=== PATIENT | female | born 1985 | race Caucasian/White ===

== ENCOUNTER 2020-05-19 12:53 | Emergency (ER) | payer BC, SELFPAY ==
[2020-05-19 13:32] VITALS: BP 133/89; PULSE 92; RESP 20; TEMP 36.4; O2SAT 100
--- NOTE | 2020-05-19 13:38 | ED.GENADULT ---
HPI - General Adult General Chief complaint: Urogenital-Female Stated complaint: UTI Time Seen by Provider: 05/19/20 12:56 Source: patient Mode of arrival: ambulatory Limitations: no limitations History of Present Illness HPI narrative: 35 y/o female. PMH includes: None reported. Presents to [facility] today with acute complaints of urinary frequency, urgency, and dysuria for the past 48 hours. She denies fever. No abdominal pain, flank pain, hematuria. No vaginal discharge or pelvic pain. She is without additional acute complaints upon exam. Related Data Allergies Allergy/AdvReac Type Severity Reaction Status Date / Time morphine Allergy Unknown Verified 06/11/16 11:11 Review of Systems Review of Systems: Narrative: CONSTITUTIONAL: Denies fever, chills, sweats. EYES: Denies visual changes, redness, discharge. ENT: Denies rhinorrhea, congestion, sore throat, otalgia. CARDIOVASCULAR: Denies chest pain, palpitations, edema. RESPIRATORY: Denies dyspnea, wheezing, cough GASTROINTESTINAL: Denies abdominal pain, nausea, vomiting, diarrhea. GENITOURINARY: Positive urinary dysuria and frequency. No hematuria, abnormal discharge SKIN: Denies rash or itching. MUSCULOSKELETAL: Denies acute back pain, joint pain, or myalgia. NEUROLOGIC: Denies numbness, or focal weakness. PSYCHIATRIC: Denies anxiety or depression. All systems reviewed & are unremarkable except as noted in HPI and below PMFSH Family History Family History Father Hypertension Family history of heart disease in male family member before age 55 Family history of elevated blood lipids Acute myocardial infarction Sibling Asthma Mother Family history of pancreatic disease Other Diabetes mellitus Family history of allergic disorder Family history of cardiovascular disease Family history of malignant neoplasm Social History Social History Smoking status: Never smoker Alcohol intake: current Gender identity (if verbalized by the patient): Female Comments At time of signature, I agree with nursing past medical, surgical, social and family history. There is no relevant family history pertinent to the presenting complaint. Exam Narrative: Exam Narrative: GENERAL: This is a well-nourished, well-developed patient, in no apparent distress. HEAD: normocephalic, atraumatic. EYES: PERRL. Sclera clear/white. Vision is grossly intact. EARS: External ears normal, auditory canals clear and without drainage, TMs normal without perforation. Hearing grossly intact. NOSE: External nose normal with no obvious nasal discharge, nares without redness, no rhinorrhea. THROAT: Mucous membranes moist, posterior pharynx clear. NECK: Neck supple, non-tender without lymphadenopathy, masses or thyromegaly. CARDIOVASCULAR: Regular rate and rhythm without murmurs, gallops, or rubs. RESPIRATORY: Clear to auscultation. Breath sounds equal bilaterally. No wheezes, rales, or rhonchi. GASTROINTESTINAL: Abdomen soft, non-tender, nondistended. Bowel sounds are active. No hepato-splenomegaly, or palpable masses. No guarding. No CVA tenderness. SKIN: warm, intact with no suspicious lesions or rash, good texture and turgor. NEURO: awake, alert, and oriented to person, place and time. There were no obvious focal neurologic abnormalities. Steady gait Course Course Emergency Course: -35 y/o female. PMH includes: None reported. Presents to [facility] today with acute complaints of urinary frequency, urgency, and dysuria for the past 48 hours. She denies fever. No abdominal pain, flank pain, hematuria. No vaginal discharge or pelvic pain. -Afebrile, non-tachycardiac. -Unremarkable abdominal exam. No CVA tenderness. -Will proceed with Urine Dipstick. Vital Signs Vital signs: Vital Signs Temperature 36.4 C L 05/19/20 13:32 Pulse Rat
== END 2020-05-19 13:44 | disposition home or self-care (01) ==
PROVIDERS: Emergency Provider Nurse Practitioner Adult Health; PCP Family Medicine
DX: N39.0 Urinary tract infection, site not specified (principal)
CPT/HCPCS: 81003; 87077; 87086; 87088; 87186; 99213; G0463

== ENCOUNTER 2021-05-25 12:45 | Emergency (ER) | payer BC, SELFPAY ==
[2021-05-25 12:54] VITALS: BP 132/78; PULSE 84; RESP 16; TEMP 36; O2SAT 100
--- NOTE | 2021-05-25 13:14 | ED.GENADULT ---
HPI - General Adult General Chief complaint: Urogenital-Female Stated complaint: Possible UTI Source: patient Mode of arrival: ambulatory Limitations: no limitations History of Present Illness HPI narrative: Patient is a 36-year-old female who presents to the [facility] via POV for evaluation of a urinary problem that began 2 days ago. Additionally, she reports urinary frequency, urinary urgency, and dysuria. Denies taking OTC meds for. Nothing improves symptoms. Urinating worsens symptoms. History of UTI. She states today symptoms are similar to previous UTIs. Last UTI was approximately 1 year ago. Related Data Allergies Allergy/AdvReac Type Severity Reaction Status Date / Time morphine Allergy Mild Itching Verified 05/25/21 13:17 Review of Systems Review of Systems: Denies history of pyelonephritis and renal calculi. Pertinent negatives: fever, chills, sweats, change in appetite, poor p.o. intake, malaise, recent weight loss, myalgias, lymphadenopathy, headache, dizziness, STD exposure, painful intercourse, abdominal pain, constipation, nausea, vomiting, diarrhea, abdominal cramping, hematuria, back pain, urinary incontinence, vaginal bleeding/discharge, penile drainage, testicular pain, shortness of breath, chest pain, and heart palpitations/murmurs. [facility] Past Medical History Medical History (Updated 05/25/21 @ 13:17 by Iglesia Flores [facility], ) Cholecystitis Gastritis Herpes simplex UTI (urinary tract infection) Surgical History Surgical History (Updated 10/12/20 @ 21:22 by Kinsey Barrera MD) Hx laparoscopic cholecystectomy Tubal ligation status Family History Family History Father Hypertension Family history of heart disease in male family member before age 55 Family history of elevated blood lipids Acute myocardial infarction Sibling Asthma Mother Family history of pancreatic disease Other Diabetes mellitus Family history of allergic disorder Family history of cardiovascular disease Family history of malignant neoplasm Social History Social History (Updated 10/08/20 @ 14:25 by Diane Stewart) Social History: Smoking status: Never smoker Second hand tobacco smoke exposure: No Alcohol intake: never Substance use: never Substance use type: does not use Gender identity (if verbalized by the patient): Female Sexual Orientation (if Verbalized by the Patient): Straight or Heterosexual Comments Reviewed Exam Narrative: GENERAL: Well-appearing, well-nourished, and in no acute distress. HEAD: Normocephalic, atraumatic. NECK: Supple. No lymphadenopathy or nuchal rigidity. CHEST: Lung sounds are clear to auscultation in bilateral lung martinez. No respiratory distress. HEART: Regular rate and rhythm. No murmur, gallop, or rub heard. ABDOMEN: Soft, non-tender, non-distended, normal active bowel sounds in all quadrants. No guarding. No rebound tenderness. No pulsatile or palpable abdominal mass(es). No CVATGU: Bladder non-distended, non-tender EXTREMITIES: Normal range of motion. No edema. SKIN: Warm, dry, no rash. No skin color changes. Excellent turgor. NEURO: No focal deficits. Alert and oriented x3. SPECIAL OBSERVATIONS: Smiling. Laughing. No evidence of discomfort. C/O of of proportion to exam. Eating XXX. Running around. Tolerates food/fluids. Course Course Level of Care: Express Care Visit Vital Signs Vital signs: Vital Signs Temperature 96.8 F L 05/25/21 12:54 Pulse Rate 84 05/25/21 12:54 Respiratory Rate 16 05/25/21 12:54 Blood Pressure 132/78 05/25/21 12:54 Pulse Oximetry 100 05/25/21 12:54 Temperature 96.8 F L 05/25/21 12:54 Pulse Rate 84 05/25/21 12:54 Respiratory Rate 16 05/25/21 12:54 Blood Pressure 132/78 05/25/21 12:54 Pulse Oximetry 100 05/25/21 12:54 Reviewed Medical Decision Making Differential Diagnosis Differential Diagnos
== END 2021-05-25 13:24 | disposition home or self-care (01) ==
PROVIDERS: Emergency Provider Nurse Practitioner Family; PCP Family Medicine
DX: N30.90 Cystitis, unspecified without hematuria (principal)
CPT/HCPCS: 81003; 87077; 87086; 87186; 99213; G0463

== ENCOUNTER 2021-11-26 09:51 | Outpatient (CLI) | payer BC, SELFPAY ==
[2021-11-26 10:02] LABS: Basophils Absolute Auto 0.1 K/mm3 (0.0-0.1); Basophils Percent Auto 0.7 % (0.2-1.2); Eosinophils Absolute Auto 0.2 K/mm3 (0-0.3); Eosinophils Percent Auto 2.7 % (0-4.4); Hematocrit 39.7 % (37.0-47.0); Hemoglobin 12.1 g/dL (12.0-15.0); Immature Granulocyte Absolute 0.01 K/mm3 (0.00-0.031); Immature Granulocyte Percent A 0.1 % (0-0.5); Lymphocytes Absolute Auto 2.34 K/mm3 (0.9-3.2); Lymphocytes Percent Auto 34.6 % (18.3-44.2); Mean Corpuscular HGB Conc 30.5 g/dl (32-36); Mean Corpuscular Hemoglobin 24.3 pg (26-34); Mean Corpuscular Volume 79.7 fl (80-100); Mean Platelet Volume 9.8 fl (7.4-10.4); Monocytes Absolute Auto 0.3 K/mm3 (0.1-0.6); Monocytes Percent Auto 4.9 % (2.6-8.5); Neutrophils Absolute Auto 3.9 K/mm3 (1.3-6.7); Platelet Count Result 278 k/mm3 (150-375); Red Blood Count 4.98 M/mm3 (4.2-5.4); Red Cell Distribution Width 14.9 % (11.5-14.5); White Blood Count 6.8 K/mm3 (4.5-10.0)
[2021-12-01 13:54] LABS: FSH 4.5 mIU/mL (***); Progesterone 2.5 ng/mL (***); Prolactin 5.8 ng/mL (***)
[2021-12-05 03:56] LABS: Estradiol, Ultrasensitive 134 pg/mL
[2021-12-05 11:49] LABS: Testosterone Free 4.3 pg/mL (0.1-6.4); Testosterone Total 56 ng/dL (2-45)
== END 2021-11-26 09:52 | disposition home or self-care (01) ==
LOC: ANHLAB 09:52
PROVIDERS: PCP Family Medicine; Visit Provider Obstetrics & Gynecology
DX: N92.6 Irregular menstruation, unspecified (principal)
CPT/HCPCS: 36415; 82670; 83001; 84144; 84146; 84402; 84403; 85025

== ENCOUNTER 2021-12-10 10:16 | Outpatient (CLI) | payer BC, SELFPAY ==
--- NOTE | ~2021-12-10 | US_ITS ---
EXAMINATION: US pelvic complete w TV DATE: 12/10/2021 11:21 INDICATION: Irregular periods. Comparison:No prior studies for comparison. TECHNIQUE: Multiple transabdominal and endovaginal sonographic images of the pelvis performed. FINDINGS: The uterus measures 12.9 x 6.7 x 4.2 cm. There is a nabothian cyst measuring 8 mm. The endo metrial complex measures 8 mm. The right ovary measures 2.1 x 1.7 x 1.7 cm and the left ovary measures 1.2 x 1.1 x 1.7 cm. There ar e small follicles in each ovary. Normal doppler signal in both ovaries. There is no free fluid in the pelvis. There are no abnormal masses seen on either side. IMPRESSION: 1. Mildly enlarged uterus. Otherwise, unremarkable pelvic ultrasound. Reviewed, dictated and finalized at location B.
== END 2021-12-10 10:17 | disposition home or self-care (01) ==
PROVIDERS: PCP Family Medicine; Visit Provider Obstetrics & Gynecology
DX: N92.6 Irregular menstruation, unspecified (principal); N85.2 Hypertrophy of uterus
CPT/HCPCS: 76830; 76856

== ENCOUNTER 2023-07-18 12:35 | Emergency (ER) | payer BC, SELFPAY ==
--- NOTE | ~2023-07-18 | XR_ITS ---
EXAMINATION: XR chest 1V portable 07/18/2023 13:36 INDICATION: Fever PROCEDURE: AP portable chest COMPARISON: 05/13/2016 FINDINGS: The lungs are clear. The cardiomediastinal silhouette is within normal limits. There are no pleural effusions. There is no pneumothorax suspected. IMPRESSION: 1: NO ACUTE CARDIOPULMONARY DISEASE. Reviewed, dictated and finalized at location A.
[2023-07-18 12:37] VITALS: BP 145/107; PULSE 124; RESP 18; TEMP 37.4; O2SAT 99
[2023-07-18 12:54] VITALS: RESP 16
--- NOTE | 2023-07-18 13:04 | ED.FEVER ---
HPI - Fever General Chief Complaint: Fever Stated Complaint: fever Time Seen by Provider: 07/18/23 13:04 Source: patient and family Mode of arrival: ambulatory Limitations: no limitations History of Present Illness HPI Narrative: 38 years old white female came to the emergency room by private car complaining of sore throat, nasal and postnasal discharge, raspy voice, coughing started 4 days ago. Last Tylenol intake was 14 hours ago. Her temperature on arrival to the ED is 37.4. 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 Related Data Allergies Allergy/AdvReac Type Severity Reaction Status Date / Time morphine Allergy Mild Itching Verified 04/01/22 09:10 Review of Systems Review of Systems: All systems reviewed & are unremarkable except as noted in HPI and below PMFSH Past Medical History Medical History Cholecystitis Gastritis Herpes simplex UTI (urinary tract infection) Surgical History Surgical History Hx laparoscopic cholecystectomy Tubal ligation status Family History Family History Father Hypertension Family history of heart disease in male family member before age 55 Family history of elevated blood lipids Acute myocardial infarction Sibling Asthma Mother Family history of pancreatic disease Thyroid disease Other Diabetes mellitus Family history of allergic disorder Family history of cardiovascular disease Family history of malignant neoplasm Social History Social History Social History: Smoking status: Never smoker Second hand tobacco smoke exposure: No Alcohol intake: never Substance use: never Substance use type: does not use Living arrangements: with family Occupation/Education: occupation Gender identity (if verbalized by the patient): Female Sexual Orientation (if Verbalized by the Patient): Straight or Heterosexual Exam Narrative: General appearance: Well-developed, well-nourished Skin: Normal color Head: Normocephalic, nontraumatic Eyes: Clear conjunctiva ENT: Oropharyngeal erythema Neck: Supple, nontender Chest and respiratory: Airway patent, no respiratory distress, no accessory muscle use Heart: Regular rate/rhythm Abdomen: Soft, nontender, no organomegaly, quiet bowel sounds Vascular: Normal peripheral pulses, normal capillary refill. Musculoskeletal: Normal range of motion, nontender back Neurologic: Alert and oriented ?3, TOWER DIRECTOR is normal as tested, no gross motor deficit Course Vital Signs Vital signs: Vital Signs Temperature 37.4 C 07/18/23 12:37 Pulse Rate 124 H 07/18/23 12:37 Respiratory Rate 18 07/18/23 12:37 Blood Pressure 145/107 H 07/18/23 12:37 Pulse Oximetry 99 07/18/23 12:37 Temperature 37.4 C 07/18/23 12:37 Pulse Rate 124 H 07/18/23 12:37 Respiratory Rate 16 07/18/23 12:54 Blood Pressure 145/107 H 07/18/23 12:37 Pulse Oximetry 99 07/18/23 12:37 MDM - Fever MDM Narrative Medical decision making narrative: Patient presents with upper respiratory viral infection symptoms Physical examination showed oropharyngeal erythema, Workup today positive for influenza B. Patient is sick for 4 days, Tamiflu is not recommended at this time. Patient will use [id number] TheraFlu, Tylenol, ibuprofen, excuse of work tomorrow. Differential Diagnosis Differential diagnosis: Likely other (As above) Lab Data Labs: Lab Results 07/18/23 07/18/23 Range/Units 12:59 13:25 Monoscreen Negativ
[2023-07-18] MEDS: ACETAMINOPHEN 325 MG TABLET 650 MG PO (13:44)
[2023-07-18] MEDS: IBUPROFEN 600 MG TABLET PO (13:44)
[2023-07-18 13:45] LABS: Influenza A QL RT-PCR Negative (Negative); Influenza B QL RT-PCR Positive (Negative); RSV RNA, RT-PCR Negative (Negative); SARS-CoV-2 RNA PCR Negative (Negative)
[2023-07-18 13:56] LABS: Monoscreen Negative (Negative); Negative Monotest Control Negative (Negative); Positive Monotest Control Positive (Positive)
[2023-07-18 14:33] LABS: Appearance Urine Cloudy (Clear); Bilirubin Urine 1+ (Negative); Blood Urine 1+ (Negative); Color Urine Yellow (Yellow); Glucose Urine UA Negative (Negative); Ketones Urine 2+ mg/dL (Negative); Leukocyte Esterase Ur Negative LEU/UL (Negative); Nitrate Urine Negative (Negative); Protein Urine 1+ mg/dL (Negative); Specific Grav Ur 1.025 (1.001-1.035)
[2023-07-18 14:34] VITALS: BP 134/70; PULSE 101; RESP 16; TEMP 36.8; O2SAT 99
[2023-07-18 14:35] LABS: Bacteria Urine 3+ /hpf; Squamous Epithelial Cell Urine Many /hpf (Few)
[2023-07-18 14:37] LABS: Add Urine Microscopic? YES
== END 2023-07-18 14:30 | disposition home or self-care (01) ==
PROVIDERS: Emergency Medicine; Emergency Provider Emergency Medicine; PCP Family Medicine
DX: J10.1 Influenza due to other identified influenza virus with other respiratory manifestations (principal); Z20.822 Contact with and (suspected) exposure to COVID-19; Z87.440 Personal history of urinary (tract) infections; Z90.49 Acquired absence of other specified parts of digestive tract
CPT/HCPCS: 36415; 71045; 81001; 81025; 86308; 87086; 87088; 87637; 99283; A9270

== ENCOUNTER 2024-06-14 07:45 | Outpatient (CLI) | payer BC, SELFPAY ==
--- NOTE | ~2024-06-14 | MM_ITS ---
EXAMINATION: MM screening saad BI w elvin HISTORY: Screening TECHNIQUE: Craniocaudal and mediolateral oblique 3-D tomosynthesis images were obtained and synthetic 2-D images were generated. CAD analysis was submitted and interpreted. COMPARISON: No prior mammogram is available for comparison at this institution. BREAST PARENCHYMAL COMPOSITION: Not dense: There are scattered areas of fibroglandular density. FINDINGS: There are asymmetries centered in the upper outer quadrant of the right breast, middle thir d. There are no suspicious masses, calcifications or architectural distortion in the left breast to s uggest malignancy. IMPRESSION: 1. Right breast asymmetries 2. Additional mammographic views and possible breast ultrasound are recommended. BI-RADS Category 0: Incomplete: Needs additional imaging evaluation. Reviewed, dictated and finalized at location B. DESIGN SUPERVISOR IMPRESSION: 1. Right breast asymmetries 2. Additional mammographic views and possible breast ultrasound are recommended . BI-RADS Category 0: Incomplete: Needs additional imaging evaluation.
--- OUTSIDE RECORDS SUMMARY | 2024-06-14 07:50 | XMS_ITS | Clinical Summary ---
Author Organization [facility] Address [address] [place] [address] Care Team Providers Care Marketing Production Coordinator Name Role Phone Unavailable Primary Care Provider Unavailabl e Immunizations Immunization Administration Dates Next Due Covid-19, Mrna, Lnp-s, Pf, 30 Mcg/0.3 Ml Dose (P fizer) 05/21/2021,04/30/2021 Social History Tobacco Use Types Packs/Day Years Used Date Smoking Tobacco: Never Assessed Comments Unknown Sex and Gender Information Value Date Recorded Sex Assigned at Not on file Legal Sex Female 1:08 PM MEDICATION AID Gender Identity Not on file Sexual Orientation Not on file Plan of Treatment Health Maintenance Due Date Last Done Comments Hepatitis C Virus (HCV) Screening 1984 TdaP Immunization 1984 Hepatitis B Immunization (1 of 3 - 19+ 3-dose series) 01/04/2003 Pap Smear 01/04/2005 Cervical Cancer Screening (CCS) 01/04/2014 HPV/Cotest 01/04/2014 Influenza Immunization (#1) 2023 SARS-COV-2 Immunization ( season) 2023 05/21/2021, 04/30/2021 Discussion re Starting/Frequency of Mammograms 2024 Respiratory Syncytial Virus (RSV) Immunization (Adult) (1 - 1-dose 75+ series) 01/04/2059 Meningococcal Immunization (ACWY) Aged Out No longer eligible b ased on patient's age to complete this topic Pneumococcal Immunization Combined Aged Out No longer eligible b ased on patient's age to complete this topic Rotavirus Immunization Aged Out No lo nger eligible based on patient's age to complete this topic
--- OUTSIDE RECORDS SUMMARY | 2024-06-14 07:50 | XMS_ITS | Clinical Summary ---
Author Organization [facility] Address [address] [place] [address] Care Team Providers Care Architecture Technician Name Role Phone None, Provider Primary Care Provider Unavaila ble Allergies No known active allergies Medications cetirizine 10 MG tablet Take 10 mg by mouth daily. Active Family History Medical History Relation Comments Heart Disease Father Hypertension Father Diabetes Maternal Grandfather Heart Disease Maternal Grandfather Hypertension Maternal Grandfather Cancer Maternal Grandmother Pancreas Disease Mother Cancer Paternal Grandmother Relation Status Comments Father Maternal Grandfather Maternal Grandmother Mother Paternal Grandmother Social History Tobacco Use Types Packs/Day Years Used Date Smoking Tobacco: Never Smokeless Tobacco: Never Alcohol Use Standard Drinks/Week Comments No 0 (1 standard drink = 0.6 oz pur e alcohol) AUDIT-C Answer Date Recorded Frequency of Alcohol Consumption Never 03/14/2019 Average Number of Drinks Not on file 019 Frequency of Binge Drinking Not on file 02/24 Comments No Sex and Gender Information Value Date Recorded Sex Assigned at Not on file Legal Sex Female 4:34 PM REGISTERED DENTAL HYGIENIST Gender Identity Not on file Sexual Orientation Not on file Last Filed Vital Signs Vital Sign Reading Time Taken Comments Blood Pressure 134/83 03/14/2019 4:42 PM REGISTERED DENTAL HYGIENIST Pulse 84 03/14/2019 4:42 PM REGISTERED DENTAL HYGIENIST Temperature 36.4 C (97.5 F) 03/14/2019 4:42 PM REGISTERED DENTAL HYGIENIST Respiratory Rate 16 03/14/2019 4:42 PM REGISTERED DENTAL HYGIENIST Oxygen Saturation 100% 03/14/2019 4:42 PM REGISTERED DENTAL HYGIENIST Inhaled Oxygen Concentration - - Weight 95.3 kg (210 lb) 03/14/2019 4:42 PM REGISTERED DENTAL HYGIENIST Height 162.6 cm (5' 4 ) 03/14/2019 4:42 PM REGISTERED DENTAL HYGIENIST Body Mass Index 36.05 03/14/2019 4:42 PM REGISTERED DENTAL HYGIENIST Plan of Treatment Health Maintenance Due Date Last Done Comments Cervical Cancer Screening Pa p Smear (Age 30 to 64) Every 3 Years 1984 Annual Physical 01/04/1987 Hepatitis C 01/04/2002 DTaP, Tdap and Td Vaccines ( 1 - Tdap) 01/04/2003 Hepatitis B Vaccines (1 of 3 - 19+ 3-dose series) 01/04/2003 Cervical Cancer Screening Pa p with HPV Testing (Age 30 to 64) Every 5 Years 01/04/2014 Cervical Cancer Screening with HPV 01/04/2014 COVID-19 Vaccine (2023-2 5 season) 2023 Mammogram Screening 2024 Influenza Adult (#1) 2024 HPV Vaccines Aged Out No longer eligi ble based on patient's age to complete this topic Meningococcal B Vaccine Aged Out No l onger eligible based on patient's age to complete this topic Meningococcal Vaccine Aged Out No samir angelina eligible based on patient's age to complete this topic Pneumococcal Vaccine: Pediat rics (0 to 5 Years) and At-Risk Patients (6 to 64 Years) Aged Out No longer eligible b ased on patient's age to complete this topic RSV Immunizations Under 20 Months Aged Out No longer eligible based on patient's age to complete this topic Insurance [facility] Care Teams Architecture Technician Relationship Specialty Start Date End Date None, Provider, PCP - General 03/14/19
== END 2024-06-14 07:46 | disposition home or self-care (01) ==
LOC: ANHIMG 07:48
PROVIDERS: PCP Family Medicine; Visit Provider Obstetrics & Gynecology
DX: Z12.31 Encounter for screening mammogram for malignant neoplasm of breast (principal); R92.8 Other abnormal and inconclusive findings on diagnostic imaging of breast
CPT/HCPCS: 77063; 77067

== ENCOUNTER 2024-07-05 10:13 | Outpatient (CLI) | payer BC, SELFPAY ==
--- NOTE | ~2024-07-05 | MM_ITS ---
EXAMINATION: MM diagnostic saad RT w elvin HISTORY: Right breast asymmetry TECHNIQUE: Additional 3-D tomosynthesis images of the right breast were performed and synthetic 2-D i mages were generated. CAD analysis was submitted and interpreted. COMPARISON: 06/14/2024 BREAST PARENCHYMAL COMPOSITION:Not Dense. There are scattered areas of fibroglandular density. FINDINGS: Right breast asymmetry effaces with spot compression. No persistent mass lesion or distorti on. No suspicious microcalcification. IMPRESSION: No mammographic evidence for malignancy. BI-RADS Category 1: Negative Reviewed, dictated and finalized at location .
--- OUTSIDE RECORDS SUMMARY | 2024-07-05 11:34 | XMS_ITS | Clinical Summary ---
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
--- OUTSIDE RECORDS SUMMARY | 2024-07-05 11:34 | XMS_ITS | Clinical Summary ---
Author Organization [facility] Address [address] [place] [address] Care Team Providers Care Copier Technician Name Role Phone None, Provider Primary [...] on file Legal Sex Female 4:34 PM AXMINSTER WEAVER Gender Identity Not on file Sexual Orientation Not on file Last Filed Vital Signs Vital Sign Reading Time Taken Comments Blood Pressure 134/83 03/14/2019 4:42 PM AXMINSTER WEAVER Pulse 84 03/14/2019 4:42 PM AXMINSTER WEAVER Temperature 36.4 C (97.5 F) 03/14/2019 4:42 PM AXMINSTER WEAVER Respiratory Rate 16 03/14/2019 4:42 PM AXMINSTER WEAVER Oxygen Saturation 100% 03/14/2019 4:42 PM AXMINSTER WEAVER Inhaled Oxygen Concentration - - Weight 95.3 kg (210 lb) 03/14/2019 4:42 PM AXMINSTER WEAVER Height 162.6 cm (5' 4 ) 03/14/2019 4:42 PM AXMINSTER WEAVER Body Mass Index 36.05 03/14/2019 4:42 PM AXMINSTER WEAVER Plan of Treatment Health Maintenance Due Date [...] patient's age to complete this topic Insurance [facility] Care Teams Copier Technician Relationship Specialty Start Date End Date None, Provider, PCP - General 03/14/19
== END 2024-07-05 10:14 | disposition home or self-care (01) ==
LOC: ANHIMG 10:18
PROVIDERS: PCP Family Medicine; Visit Provider Obstetrics & Gynecology
DX: N64.89 Other specified disorders of breast (principal)
CPT/HCPCS: 77061; 77065; G0279

== ENCOUNTER 2025-02-12 17:59 | Emergency (ER) | payer BC, SELFPAY ==
--- NOTE | 2025-02-12 18:00 | ED_ITS ---
HPI - Female Genitourinary General Chief complaint: Urogenital-Female Stated complaint: UTI Time Seen by Provider: 02/12/25 18:00 Source: patient Mode of arrival: ambulatory Limitations: no limitations History of Present Illness HPI Narrative: Dagoberto is a 40 year old female patient presenting to the clinic today with c/o possible UTI x2 days. She reports she has been having urinary urgency and bladder pain at the end of urination. She denies any fevers, chills, or body aches. No nausea, vomiting, back pain, or abdominal pain. Has not taken any medications for her symptoms. Related Data Home Medications ?Medication ?Instructions ?Recorded ?Confirmed ?Last Taken ?Type cetirizine 10 mg tablet 10 mg PO DAILY PRN 10/08/23 12/13/24 Unknown History Allergies Allergy/AdvReac Type Severity Reaction Status Date / Time morphine Allergy Mild Itching Verified 02/12/25 18:13 Review of Systems Review of Systems: Pertinent positives per HPI. Patient denies any fever, chills, rash, headache, visual changes, dizziness, cough, runny nose, sore throat, shortness of breath, chest pain, palpitations, nausea, vomiting, diarrhea, constipation, abdominal pain. [facility] Past Medical History Medical History Breast asymmetry UTI (urinary tract infection) Herpes simplex Cholecystitis Gastritis Surgical History Surgical History Tubal ligation status Hx laparoscopic cholecystectomy Family History Family History Father Hypertension Family history of heart disease in male family member before age 55 Family history of elevated blood lipids Acute myocardial infarction Sibling Asthma Mother Family history of pancreatic disease Thyroid disease Other Diabetes mellitus Family history of allergic disorder Family history of cardiovascular disease Family history of malignant neoplasm Social History Social History (Updated 12/13/24 @ 10:24 by Javier Eller MA) Social History: Smoking status: Never smoker Second hand tobacco smoke exposure: No Alcohol intake: never Substance use: never Substance use type: does not use Do You Feel Safe in your Home?: Yes Lack of Transportation: No Lack of Food: Never True Current Housing: I Have Housing Concerned About Future Housing: No Difficulty Paying Gas/Electric Bills: No Difficulty Paying for Meds: No Currently Unemployed: No Education: Associate Degree Difficulty w/ Childcare or Family Care: No Living arrangements: with family Occupation/Education: occupation 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 There is no relevant family history pertinent to the patient complaint. Exam Narrative: General: Well-developed, obese, in no apparent distress. Head: Normocephalic, atraumatic. Cardio: Regular rate and rhythm, s1 and s2 normal, no murmur appreciated. Resp: Clear to auscultation bilaterally, no rhonchi, rales, wheezing or rubs. Abdomen: Soft, pliable, bowel sounds present in all quadrants, non-tender to palpation, no organomegly, no CVAT tenderness. Course Course Emergency Course: Portions of this record may have been created with voice recognition software. Level of Care: Express Care Visit Vital Signs Vital signs: Vital Signs Temperature 36.2 C L 02/12/25 18:08 Pulse Rate 87 02/12/25 18:08 Respiratory Rate 16 02/12/25 18:08 Blood Pressure 132/89 02/12/25 18:08 Pulse Oximetry 100 02/12/25 18:08 Temperature 36.2 C L 02/12/25 18:08 Pulse Rate 87 02/12/25 18:08 Respiratory Rate 16 02/12/25 18:08 Blood Pressure 132/89 02/12/25 18:08 Pulse Oximetry 100 02/12/25 18:08 Vital signs reviewed MDM - Female Genitourinary MDM Narrative Medical decision making narrative: At the time of visit patient is resting comfortably on the exam table. Patient appears to be nontoxic. C/o possible UTI x2 days. On exam patient has normal abdominal exam, no CVAT tenderness. She reports she has been having urinary urgency and bladder pain at the end of urination. She denies any fevers, chills, or body aches. No nausea, vomiting, back pain, or abdominal pain. Has not taken any medications for her symptoms. Urine dip ordered Labs: Urine dip performed and was positive for leukocytes and protein. We will send urine for culture Plan: I suspect patient has acute UTI. Prescription for Bactrim was sent to the pharmacy. Supportive measures were discussed with the patient and they voiced understanding discharge instructions and agrees to treatment plan. Return precautions reviewed Differential Diagnosis Differential diagnosis: Likely urinary tract infection and cystitis Lab Data Labs: Lab Results 02/12/25 Range/Units 18:15 POC Urine Color Yellow POC Urine Clarity Cloudy POC Urine pH 6.0 POC Ur Specif Willard 1.025 POC Urine Protein Trace (Negative) POC Ur Glucose (UA) Negative (Negative) POC Urine Ketones Negative (Negative) POC Urine Blood Negative (Negative) POC Urine Nitrite Negative (Negative) POC Urine Bilirubin Negative (Negative) POC Urine Urobilinogen 0.2 POC U Leukocyte Esteras 1+ (Negative) Discharge Plan Discharge Clinical Impression: UTI (urinary tract infection) Qualifiers: Urinary tract infection type: acute cystitis Hematuria presence: without hematuria Qualified Code(s): N30.00 - Acute cystitis without hematuria Patient Disposition: Home Condition: Stable Instructions: Antibiotic Form, Urinary Tract Infection in Women (ED) Additional Instructions: Urine positive for leukocytes and protein. We will send urine for culture. Take Bactrim as prescribed Increase fluids and stay well hydrated Wipe front to back. May use wet wipes. Avoid tub baths If sexually active- pee before and after intercourse. Wear cotton panties Avoid tight clothing up against the genitals Follow up with your PCP in 1 week if symptoms persist. Patient Language: Citizen Of [place] Prescriptions: New sulfamethoxazole-trimethoprim [Bactrim DS] 800-160 mg tablet 1 tablet PO Q12H 5 Days Qty: 10 0RF No Action cetirizine 10 mg tablet 10 mg PO DAILY PRN drospirenone-ethinyl estradiol 3-0.02 mg tablet 1 tablet PO Q24H Qty: 112 4RF Rx Instructions: take in a continuous fashion skipping the placebo Follow-up/Referrals: Pollo Myers MD [Primary Care Provider, Family Practice] Time of Disposition: 18:19 Quality NIHSS Nursing Documentation ED NIHSS nursing documentation: reviewed/agree
[2025-02-12 18:08] VITALS: BP 132/89; PULSE 87; RESP 16; TEMP 36.2; O2SAT 100
[2025-02-12 18:17] LABS: EDUAAPPEAR Cloudy; EDUABILI Negative (Negative); EDUABLOOD Negative (Negative); EDUACOLOR1 Yellow; EDUAGLUCOSE Negative (Negative); EDUAKETONE Negative (Negative); EDUALEUKO 1+ (Negative); EDUANITRATE Negative (Negative); EDUAPH 6.0; EDUAPROTEIN Trace (Negative); EDUASPGRAVITY 1.025; EDUAUROBILI 0.2
--- OUTSIDE RECORDS SUMMARY | 2025-02-12 19:13 | XMS_ITS | Clinical Summary ---
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 Gender Identity Not on file Sexual Orientation Not on file Last Filed Vital Signs Vital Sign Reading Time Taken Comments Blood Pressure 134/83 03/14/2019 4:42 PM PSS DELIVERY PROFESSIONAL Pulse 84 03/14/2019 4:42 PM PSS DELIVERY PROFESSIONAL Temperature 36.4 C (97.5 F) 03/14/2019 4:42 PM PSS DELIVERY PROFESSIONAL Respiratory Rate 16 03/14/2019 4:42 PM PSS DELIVERY PROFESSIONAL Oxygen Saturation 100% 03/14/2019 4:42 PM PSS DELIVERY PROFESSIONAL Inhaled Oxygen Concentration - - Weight 95.3 kg (210 lb) 03/14/2019 4:42 PM PSS DELIVERY PROFESSIONAL Height 162.6 cm (5' 4) 03/14/2019 4:42 PM PSS DELIVERY PROFESSIONAL Body Mass Index 36.05 03/14/2019 4:42 PM PSS DELIVERY PROFESSIONAL Plan of Treatment Health Maintenance Due Date Last Done Comments Cervical Cancer Screening Pa p Smear (Age 30 to 64) Every 3 Years 1984 Annual Physical 01/04/1987 Hepatitis C 01/04/2002 DTaP, Tdap and Td Vaccines ( 1 - Tdap) 01/04/2003 Hepatitis B Vaccines (1 of 3 - 19+ 3-dose series) 01/04/2003 HPV Vaccines (1 - 3-dose SCD M series) 01/04/2011 Cervical Cancer Screening Pa p with HPV Testing (Age 30 to 64) Every 5 Years 01/04/2014 Cervical Cancer Screening with HPV 01/04/2014 Mammogram Screening 2024 COVID-19 Vaccine ( - 2023-2 5 season) 2024 Influenza Adult (#1) 2025 Hepatitis A Vaccines Aged Out No long er eligible based on patient's age to complete this topic Meningococcal B Vaccine Aged Out No l onger eligible based on patient's age to complete this topic Meningococcal Vaccine Aged Out No samir angelina eligible based on patient's age to complete this topic Pneumococcal Vaccine: Pediat rics (0 to 5 Years) and At-Risk Patients (6 to 49 Years) Aged Out No longer eligible b ased on patient's age to complete this topic RSV Immunizations Under 20 Months Aged Out No longer eligible based on patient's age to complete this topic Insurance [facility] Care Teams Radiology Interventional Physician Relationship Specialty Start Date End Date None, Provider, PCP - General 03/14/19
--- OUTSIDE RECORDS SUMMARY | 2025-02-12 19:13 | XMS_ITS | Clinical Summary ---
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
== END 2025-02-12 18:21 | disposition home or self-care (01) ==
PROVIDERS: Emergency Provider Nurse Practitioner Family; PCP Family Medicine
DX: N30.00 Acute cystitis without hematuria (principal)
CPT/HCPCS: 81003; 87077; 87086; 87186; 99213; G0463

== ENCOUNTER 2025-02-27 10:38 | Outpatient (CLI) | payer BC, SELFPAY ==
[2025-02-27 11:08] LABS: Hematocrit 42.9 % (37.0-47.0); Hemoglobin 13.9 g/dL (12.0-15.0); Immature Granulocyte Percent A 0.3 % (0-0.5); Lymphocytes Absolute Auto 2.46 K/mm3 (0.9-3.2); Mean Corpuscular HGB Conc 32.4 g/dl (32-36); Mean Corpuscular Hemoglobin 26.6 pg (26-34); Mean Corpuscular Volume 82.0 fl (80-100); Nucleated Red Blood Cells Absolute Auto 0.000 K/mm3 (0.0-0.012); Nucleated Red Blood Cells Perc 0.0 % (0.0-0.2); Platelet Count Result 293 k/mm3 (150-375); Red Blood Count 5.23 M/mm3 (4.2-5.4); White Blood Count 7.3 K/mm3 (4.5-10.0)
[2025-02-27 11:34] LABS: Alanine Aminotransferase 17 U/L (6-35); Albumin Level 4.0 g/dL (3.5-5.1); Alkaline Phosphatase 76 U/L (38-126); Anion Gap 8 mmol/L (4-12); Aspartate Amino Transferase 25 U/L (14-36); Bilirubin,Total 0.4 mg/dL (0.2-1.3); Blood Urea Nitrogen 9 mg/dL (7-17); Calcium 8.9 mg/dL (8.4-10.2); Carbon Dioxide 23 mmol/L (22-30); Chloride 107 mmol/L (98-107); Cholesterol 249 mg/dL (0-200); Estimated Glomerular Filt Rate > 60; Glucose 89 mg/dL (65-110); HDL Direct 70 mg/dL; Potassium 4.0 mmol/L (3.4-5.0); Sodium 138 mmol/L (137-145); Total Protein 7.9 g/dL (6.3-8.2); Triglycerides 93 mg/dL (<150)
[2025-02-27 11:58] LABS: Hemoglobin A1C 5.1 % (<5.7)
[2025-02-27 12:09] LABS: Thyroid Stimulating Hormone 3.450 uIU/mL (0.465-4.680)
== END 2025-02-27 10:39 | disposition home or self-care (01) ==
LOC: ANHLAB 10:40
PROVIDERS: PCP Family Medicine; Visit Provider Physician Assistant
DX: Z00.00 Encounter for general adult medical examination without abnormal findings (principal); E07.9 Disorder of thyroid, unspecified; R53.83 Other fatigue; Z13.220 Encounter for screening for lipoid disorders; Z13.1 Encounter for screening for diabetes mellitus; Z13.21 Encounter for screening for nutritional disorder
CPT/HCPCS: 36415; 80053; 80061; 82306; 83036; 84443; 85025